=== PATIENT | female | born 1965 | race Caucasian/White ===

== ENCOUNTER 2016-06-23 13:20 | Inpatient (IN) | payer OTHER ==
[~2016-06-23] VITALS: Ht 154.9 cm; Wt 90.3 kg
[2016-06-23] MEDS ORDERED: FLUO20CA9 PO (13:51)
[2016-06-23] MEDS ORDERED: PROT1TAB2 PO (13:51)
[2016-06-23 14:45] LABS: ANION GAP 7 MEQ/L (8-16); BLOOD UREA NITROGEN 12 MG/DL (7-18); CARBON DIOXIDE LEVEL 27 MEQ/L (21-32); CHLORIDE LEVEL 107 MEQ/L (98-107); CREATININE FOR GFR 0.83 MG/DL (0.55-1.02); GLOMERULAR FILTRATION RATE > 60.0 (>58); GLUCOSE, FASTING 118 MG/DL (70-105); POTASSIUM SERUM 3.6 MEQ/L (3.5-5.1); SODIUM LEVEL 141 MEQ/L (136-145)
[2016-06-23] MEDS ORDERED: FLUO40CA PO (14:50)
[2016-06-23 15:05] LABS: BASO # 0.2 K/mm3 (0.0-0.2); BASO % 0.8 % (0.0-1.0); EOS % 0.2 % (0.0-3.0); LARGE UNSTAINED CELL # 0.1 K/mm3 (0.0-0.4); LARGE UNSTAINED CELL % 0.4 % (0.0-4.0); LYMPH # 0.6 K/mm3 (1.5-4.5); LYMPH % 1.5 % (24.0-44.0); MEAN CORPUSCULAR HEMOGLOBIN 21.4 pg (27.0-33.0); MEAN CORPUSCULAR VOLUME 71.5 fl (80.0-96.0); MONO # 0.6 K/mm3 (0.0-0.8); MONO % 1.9 % (0.0-5.0); NEUTROPHILS # 28.8 K/mm3 (1.8-7.7); NEUTROPHILS % 95.3 % (36.0-66.0); PLATELET COUNT, AUTOMATED 389 k/mm3 (150-450); RED CELL DISTRIBUTION WIDTH 16.5 % (11.5-14.5)
[2016-06-23 15:19] LABS: ADD MORPHOLOGY? YES; WHITE BLOOD COUNT 30.2 K/mm3 (4.0-10.0)
[2016-06-23 15:25] LABS: ANISOCYTOSIS 1+; HYPOCHROMASIA 2+; MICROCYTOSIS 2+
[2016-06-23] MEDS ORDERED: ONDANSETRON 4MG/2ML VIAL (J2405) IV PRN (15:30)
[2016-06-23] MEDS ORDERED: ACETAMINOPHEN TAB 650MG DOSE (2X325MG) PO PRN (15:30)
[2016-06-23] MEDS ORDERED: SODIUM CHLORIDE NASAL 0.65% SPRAY BTL (OCEAN) PRN (15:45)
[2016-06-23 16:18] LABS: VENOUS BASE EXCESS -0.8 (-2.0-2.0); VENOUS O2 SATURATION 94.3 % (60.0-80.0); VENOUS PARTIAL PRESSURE CO2 43.5 mmHg (38.0-50.0); VENOUS PARTIAL PRESSURE O2 75.5 mmHg (30.0-50.0); VENOUS STANDARD HCO3 23.8 MEQ/L; VENOUS TOTAL CO2 25.9 MEQ/L (24.0-28.0)
--- NOTE | 2016-06-23 16:20 | REP ---
Head CT without contrast: History: Dizziness. Comparison study: No comparison study. CT findings: Bone window settings demonstrate an intact bony calvarium. There is no evidence of skull fracture or incidental bony calvarial lesion. The visualized paranasal sinuses appear clear. No intraorbital abnormality is seen. On soft tissue window setting images; the lateral, third, and fourth ventricles are normal in size and position. Geller-white differentiation pattern is normal above and below the tentorium. There are is no evidence of intracranial hemorrhage. No mass, edema, infarction, or midline shift is seen. No extra-axial fluid collection is appreciated. Impression: Negative noncontrast head CT. Signed by Rafael Cardoza MD 06/23/2016 04:12 P
[2016-06-23 16:40] VITALS: BP 174/84
[2016-06-23 16:51] LABS: ALBUMIN 3.6 GM/DL (3.2-5.2); ALKALINE PHOSPHATASE 61 U/L (45-117); ALT/SGPT 21 U/L (12-78); ANION GAP 7 MEQ/L (8-16); AST/SGOT 9 U/L (15-37); BILIRUBIN,TOTAL 0.8 MG/DL (0.2-1.0); BLOOD UREA NITROGEN 12 MG/DL (7-18); CALCIUM LEVEL 8.1 MG/DL (8.5-10.1); CARBON DIOXIDE LEVEL 28 MEQ/L (21-32); CHLORIDE LEVEL 107 MEQ/L (98-107); CREATININE FOR GFR 0.86 MG/DL (0.55-1.02); GLOMERULAR FILTRATION RATE > 60.0 (>58); GLUCOSE, FASTING 108 MG/DL (70-105); POTASSIUM SERUM 3.7 MEQ/L (3.5-5.1); SODIUM LEVEL 142 MEQ/L (136-145); TOTAL PROTEIN 7.2 GM/DL (6.4-8.2)
[2016-06-23] MEDS: FLUoxetine 20 MG CAP PO SCH (17:09)
[2016-06-23] MEDS: PANTOPRAZOLE 40MG INJ (PROTONIX) (C9113) IV SCH (17:10)
[2016-06-23] MEDS: ENOXAPARIN 40 MG/0.4 ML SYRINGE (J1650) SC SCH (17:10)
[2016-06-23] MEDS: amLODIPine 5 MG TAB PO SCH (17:11)
[2016-06-23] MEDS ORDERED: SLF 3 ML SYR IV PRN (17:15)
[2016-06-23] MEDS: SLF 3 ML SYR IV SCH ×2 (17:19→20:04)
--- NOTE | 2016-06-23 18:11 | HPEPDOC ---
Medical History and Physical Date of Admission June 23, 2016 at 15:30 History and Physical PRIMARY CARE PROVIDER: Dr. Horne ATTENDING: Kinjal Garzon MD CHIEF COMPLAINT: Nausea/vomiting HISTORY OF PRESENT ILLNESS: This is a 50-year-old female with past medical history of migraines, sinusitis, GERD, depression, panic attacks who presents to [facility] complaining of nausea vomiting diarrhea. Upon presentation to [facility], patient's only had 1 episode of diarrhea. Stated that her nausea and vomiting had subsided. Patient had been feeling sick since Thursday during which nausea/nonbilious nonbloody vomiting as well as watery diarrhea started. Patient had approximately 3-4 stools per day which were watery and clumpy. No melanotic stools/hematochezia/hematemesis. Patient denies any sick contacts or recent travels. Admit the patient was noted to have a lactic acid is 2.7, the WBC 32, LFTs within normal limits. The patient was sent for further evaluation. Patient also had complained of frontal headache with associated dizziness. Patient states she occasionally has migraines and she typically has sinusitis. The patient states she currently feels well. Denies any complaints. PAST MEDICAL HISTORY: As per HPI PAST SURGICAL HISTORY: Left rotator cuff, bilateral breast reduction, hiatal hernia, umbilical hernia, venous stripping, cholecystectomy, fibroid tumor radiation treatment as well as ablation. SOCIAL HISTORY: Denies tobacco, illicit drug use. Occasional alcohol. Used to work as his [employer]. FAMILY HISTORY: Noncontributory ALLERGIES: Please see below. REVIEW OF SYSTEMS: HEENT: Denies sore throat/headache CARDIOVASCULAR: Denies chest pain/palpitations RESPIRATORY: No shortness of breath/cough GASTROINTESTINAL: + nausea/vomiting GENITOURINARY: Denies dysuria/urinary urgency. MUSCULOSKELETAL: Denies myalgias/arthralgias NEUROLOGICAL: Denies any focal weakness Rest of ROS negative. HOME MEDICATIONS: Please see below. PHYSICAL EXAMINATION: Vitals: (see below) General: No acute distress, laying comfortably in bed. HEENT: Moist mucous membranes. + Tenderness on palpation adjacent to the sinuses Neck: No JVD or lymphadenopathy Cardiac: RRR, No murmurs Pulm: Clear to auscultation b/l. No wheezing, rhonchi Abd: Minimal tenderness in the right upper quadrant. No rebound guarding or rigidity.ND + BS Ext: No edema or cyanosis Neuro: Strength 5/5 BUE and BLE. CN 2-12 intact. F to N intact Negative pronator drift. Negative Babinki. LABORATORY DATA: See below. IMAGING: CT abdomen and pelvis at [facility] in chart. MICROBIOLOGY: Please see below. ASSESSMENT/PLAN: 1. Leukocytosis/N/V/Diarrhea likely secondary to gastroenteritis. Lactic acidosis is much improved. Afebrile. We'll start Zosyn this patient has low- grade temps. We will continue to monitor leukocytosis. Nausea/vomiting/ diarrhea has resolved. GI panel if diarrhea persists. 2. Migraine- likely secondary to sinusitis. Nasal sprays ordered. CT head negative. If persistent consider MRI brain. Fioricet for headache. 3. Right upper quadrant tenderness- mild. LFTs within normal limits. Right upper quadrant ultrasound pending. 4. Depression- continue SSRI 5. Microcytic anemia - no bleeding at this time. anemia panel pending. DVT prophylaxis- enoxaparin Patient will follow by Dr. Kilgore starting 06/24/16 7 AM. Vital Signs Vital Signs Date Time Temp Pulse Resp B/P (MAP) Pulse Ox O2 Delivery O2 Flow Rate FiO2 06/23/16 17:11 104 174/84 06/23/16 16:40 100.3 20 94 Room Air Laboratory Data Labs 24H Laboratory Tests 2 06/23/16 14:16: White Blood Count 30.2*H, Red Blood Count 4.57, Hemoglobin 9.8L, Hematocrit 32.7L, Mean Corpuscular Volume 71.5L, Mean Corpuscular Hemoglobin 21.4L, Mean Corpuscular Hemoglobin Concent 30.0L, Red Cell Distribution Width 16.5H, Platelet Count 389, Neutrophils (%) (Auto) 95.3H, Lymphocytes (%) (Auto) 1.5L, Monocytes (%) (Auto) 1.9, Eosinophils (%) (Auto) 0.2, Basophils (%) (Auto) 0.8, Neutrophils # (Auto) 28.8H, Lymphocytes # (Auto) 0.6L, Monocytes # (Auto) 0.6, Eosinophils # (Auto) 0.0, Basophils # (Auto) 0.2, Large Unclassified Cells % 0.4 , Large Unclassified Cells # 0.1, Platelet Estimate NORMAL, Hypochromasia 2+, Anisocytosis 1+, Microcytosis 2+, Anion Gap 7L, Glomerular Filtration Rate > 60.0, Blood Urea Nitrogen 12, Creatinine 0.83, Sodium Level 141, Potassium Level 3.6, Chloride Level 107, Carbon Dioxide Level 27, Calcium Level 8.0L 06/23/16 16:09: Anion Gap 7L, Glomerular Filtration Rate > 60.0, Blood Urea Nitrogen 12, Creatinine 0.86, Sodium Level 142, Potassium Level 3.7, Chloride Level 107, Carbon Dioxide Level 28, Calcium Level 8.1L, Blood Gas Puncture Site NOT GIVEN, Blood Gas Bicarbonate Standard 23.8, Venous Blood pH 7.370, Venous Blood Partial Pressure CO2 43.5, Venous Blood Partial Pressure O2 75.5H, Venous Blood Total Carbon Dioxide 25.9, Venous Blood HCO3 24.6, Venous Blood Oxygen Saturation 94.3H, Venous Blood Base Excess -0.8, Lactic Acid Level 1.0, Aspartate Amino Transf (AST/SGOT) 9L, Alanine Aminotransferase (ALT/SGPT) 21, Alkaline Phosphatase 61, Total Bilirubin 0.8, Total Protein 7.2, Albumin 3.6, Magnesium Level 2.0, Total Creatine Kinase 57, Creatine Kinase MB 1.0, Creatine Kinase MB Relative Index 1.75, Troponin I < 0.02, Albumin/Globulin Ratio 1.00, Thyroid Stimulating Hormone (TSH) 1.220 CBC/BMP Laboratory Tests 06/23/16 14:16 Red Blood Count 4.57, Mean Corpuscular Volume 71.5 L, Mean Corpuscular Hemoglobin 21.4 L, Mean Corpuscular Hemoglobin Concent 30.0 L, Red Cell Distribution Width 16.5 H, Neutrophils (%) (Auto) 95.3 H, Lymphocytes (%) (Auto ) 1.5 L, Monocytes (%) (Auto) 1.9, Eosinophils (%) (Auto) 0.2, Basophils (%) ( Auto) 0.8, Neutrophils # (Auto) 28.8 H, Lymphocytes # (Auto) 0.6 L, Monocytes # (Auto) 0.6, Eosinophils # (Auto) 0.0, Basophils # (Auto) 0.2, Calcium Level 8.0 L 06/23/16 16:09 Calcium Level 8.1 L, Aspartate Amino Transf (AST/SGOT) 9 L, Alanine Aminotransferase (ALT/SGPT) 21, Alkaline Phosphatase 61, Total Bilirubin 0.8, Total Protein 7.2, Albumin 3.6 Microbiology Microbiology 06/23/16 Blood Culture, Received Pending Home Medications Scheduled Fluoxetine Hcl (Fluoxetine HCl) 40 Mg Cap, 40 MG PO DAILY Pantoprazole Sodium Sesquihydr (Protonix) 40 Mg Tab, 40 TAB PO DAILY Allergies Coded Allergies: Tetracycline (Verified Allergy, Severe, hives, 06/23/16) KINJAL GARZON MD June 23, 2016 18:11
[2016-06-23] MEDS ORDERED: FIORICET TAB PO PRN (18:15)
[2016-06-23] MEDS ORDERED: MECLIZINE 12.5 MG TAB PO PRN (18:15)
[2016-06-23 19:45] VITALS: BP 139/77
[2016-06-23] MEDS: PIPERACILLIN/TAZOBACTAM SOD 3.375 GM in D5W MINI-BAG PLUS 50 ML IV SCH (20:04)
[2016-06-23 23:59] VITALS: BP 132/85
[2016-06-24 03:17] VITALS: BP 157/92
[2016-06-24] MEDS: PIPERACILLIN/TAZOBACTAM SOD 3.375 GM in D5W MINI-BAG PLUS 50 ML IV SCH ×3 (03:19→21:13)
[2016-06-24] MEDS: SLF 3 ML SYR IV SCH ×3 (03:20→21:13)
[2016-06-24 05:51] LABS: BASO # 0.1 K/mm3 (0.0-0.2); BASO % 0.3 % (0.0-1.0); EOS # 0.2 K/mm3 (0.0-0.50); EOS % 0.7 % (0.0-3.0); LARGE UNSTAINED CELL # 0.2 K/mm3 (0.0-0.4); LARGE UNSTAINED CELL % 0.7 % (0.0-4.0); LYMPH % 9.2 % (24.0-44.0); MEAN CORPUSCULAR HEMOGLOBIN 21.7 pg (27.0-33.0); MEAN CORPUSCULAR HGB CONC 29.7 g/dl (32.0-36.5); MEAN CORPUSCULAR VOLUME 73.1 fl (80.0-96.0); MONO # 0.6 K/mm3 (0.0-0.8); MONO % 2.6 % (0.0-5.0); NEUTROPHILS # 19.3 K/mm3 (1.8-7.7); NEUTROPHILS % 86.6 % (36.0-66.0); PLATELET COUNT, AUTOMATED 372 k/mm3 (150-450); RED CELL DISTRIBUTION WIDTH 16.6 % (11.5-14.5); WHITE BLOOD COUNT 22.2 K/mm3 (4.0-10.0)
[2016-06-24 06:02] LABS: ALBUMIN 3.3 GM/DL (3.2-5.2); ALBUMIN/GLOBULIN RATIO 0.97 (1.00-1.93); ALKALINE PHOSPHATASE 59 U/L (45-117); ALT/SGPT 15 U/L (12-78); ANION GAP 7 MEQ/L (8-16); AST/SGOT 8 U/L (15-37); BILIRUBIN,TOTAL 0.8 MG/DL (0.2-1.0); BLOOD UREA NITROGEN 9 MG/DL (7-18); CALCIUM LEVEL 7.9 MG/DL (8.5-10.1); CARBON DIOXIDE LEVEL 30 MEQ/L (21-32); CHLORIDE LEVEL 105 MEQ/L (98-107); CREATININE FOR GFR 0.87 MG/DL (0.55-1.02); GLOMERULAR FILTRATION RATE > 60.0 (>58); GLUCOSE, FASTING 93 MG/DL (70-105); PERCENT SATURATION 5.6 % (13.2-37.4); POTASSIUM SERUM 3.4 MEQ/L (3.5-5.1); SODIUM LEVEL 142 MEQ/L (136-145); TOTAL PROTEIN 6.7 GM/DL (6.4-8.2)
--- NOTE | 2016-06-24 06:08 | REP ---
RIGHT UPPER QUADRANT ULTRASOUND: Real-time sonographic evaluation of the right upper quadrant performed. The study is somewhat limited by patient body habitus and bowel gas. Patient has had a prior cholecystectomy. There is no intrahepatic or extrahepatic biliary dilatation, common bile duct measuring 8 mm in diameter. Liver demonstrates diffuse fibrofatty infiltration. No gross liver or pancreatic mass is seen, pancreas is not well seen due to overlying bowel gas and body habitus. Right kidney demonstrates no hydronephrosis or nephrolithiasis with normal size at 11.9 cm in length. No free fluid is seen. IMPRESSION: Essentially unremarkable right upper quadrant ultrasound status post cholecystectomy. The study is somewhat limited by patient body habitus and bowel gas. Signed by Mark Geller MD 06/24/2016 04:05 P
[2016-06-24 08:00] VITALS: BP 172/79
[2016-06-24] MEDS ORDERED: POTASSIUM CHLORIDE 10 MEQ SR TABLET PO ONE (08:15)
[2016-06-24] MEDS: ENOXAPARIN 40 MG/0.4 ML SYRINGE (J1650) SC SCH (09:02)
[2016-06-24] MEDS: amLODIPine 5 MG TAB PO SCH (09:02)
[2016-06-24] MEDS: FLUoxetine 20 MG CAP PO SCH (09:02)
[2016-06-24 09:22] LABS: FOLATE 9.9 NG/ML (>5.4)
[2016-06-24] MEDS: FERROUS SULFATE 325MG TAB PO SCH ×2 (11:08→21:13)
[2016-06-24 12:00] VITALS: BP 148/88
--- NOTE | 2016-06-24 15:07 | ECGEPIP ---
Stationary ECG Study [facility] - ED Test Date: 2016-06-23 Pat Name: NOREEN WILEY Department: Room: [place] [address] Gender: F [facility] Promoter: rn : 1965 Requested By: ISAAC Solitario Order Number: [id number] Reading MD: Noreen Torres Measurements Intervals [place] Rate: 96 P: 40 [place]: 167 QRS: 48 QRSD: 87 T: -5 QT: 361 QTc: 457 Interpretive Statements SINUS RHYTHM NONSPECIFIC ST & T-WAVE ABNORMALITY NO PRIOR FOR COMPARISON Electronically Signed On 06-24-2016 15:07:19 EDT by Noreen Torres
[2016-06-24 15:45] VITALS: BP 139/75
[2016-06-24] MEDS: PANTOPRAZOLE 40MG INJ (PROTONIX) (C9113) IV SCH (17:20)
--- NOTE | 2016-06-24 18:51 | IPN ---
DATE: 06/24/2016 Patient seen and examined. No acute events overnight. Reported abdominal pain to be much improved. Tolerating oral. Continuing to have diarrhea but also much improved. Denies any fevers or chills, chest pain, pressure or discomfort. VITAL SIGNS: Maximum temperature (T max) 100.4, current temperature (T current) 98.3, pulse 86, respirations 20, blood pressure 139/75, pulse oximetry 96% on room air. LABORATORY DATA: WBC 22.2, hemoglobin and hematocrit 9 over 30.3, platelets 372. Chemistry: Sodium 142, potassium 3.4, chloride 105, bicarbonate 30, BUN 9, creatinine 0.87. Cardiac enzymes negative times two. GI panel negative. PHYSICAL EXAMINATION: GENERAL: Patient alert and oriented times three, in no acute distress. HEENT: Normocephalic, atraumatic. PULMONARY: Bilaterally clear to auscultation. CARDIAC: Regular rate and rhythm. Normal S1, S2. ABDOMEN: Minimal tenderness right upper quadrant. No rebound, no guarding. Positive bowel sounds. EXTREMITIES: No edema bilateral lower extremities. ASSESSMENT AND PLAN: This is a 50-year-old female patient with underlying medical history of migraines, sinusitis, gastroesophageal reflux disease (GERD), depression, panic attacks, presented with complaints of nausea, vomiting and diarrhea with abdominal pain. Initially presented to [facility], found to have severe leukocytosis. Subsequently, the patient was transferred to [facility]. Problems: 1. Leukocytosis with nausea, vomiting, diarrhea and abdominal pain, likely secondary to gastroenteritis. Lactic acidosis improved. Diet as tolerated. Zosyn. CT scan at [place] has been negative. Ultrasound of right upper quadrant has also been negative. GI panel has been negative as well. Will continue to follow. Leukocytosis improved. 2. Migraine. Likely secondary to sinusitis. Nasal spray. CT of the head negative. Currently symptoms have improved after Fioricet. 3. Right upper quadrant tenderness. Currently is mild, much improved. Liver function test (LFT) within normal limits. Right upper quadrant ultrasound within normal limits. 4. Depression. Continue on current medication. 5. Microcytic anemia. No bleeding. Anemia panel appreciated. Iron supplementation. 6. Hypertension. Continue blood pressure medication. 7. Depression. Continue current medication. 8. Deep vein thrombosis (DVT) prophylaxis. Lovenox subcu. DISPOSITION PLANNING: Pending clinical improvement.
[2016-06-24 20:53] VITALS: BP 163/82
[2016-06-24 23:58] VITALS: BP 142/72
[2016-06-25] MEDS: PIPERACILLIN/TAZOBACTAM SOD 3.375 GM in D5W MINI-BAG PLUS 50 ML IV SCH ×2 (05:02→12:05)
[2016-06-25] MEDS: SLF 3 ML SYR IV SCH (05:03)
[2016-06-25 05:10] VITALS: BP 152/86
[2016-06-25 05:57] LABS: ADD MORPHOLOGY? YES; ALBUMIN 3.1 GM/DL (3.2-5.2); ALBUMIN/GLOBULIN RATIO 0.74 (1.00-1.93); ALKALINE PHOSPHATASE 62 U/L (45-117); ALT/SGPT 17 U/L (12-78); ANION GAP 5 MEQ/L (8-16); AST/SGOT 8 U/L (15-37); BASO # 0.1 K/mm3 (0.0-0.2); BASO % 0.7 % (0.0-1.0); BILIRUBIN,TOTAL 0.3 MG/DL (0.2-1.0); BLOOD UREA NITROGEN 10 MG/DL (7-18); CALCIUM LEVEL 8.5 MG/DL (8.5-10.1); CARBON DIOXIDE LEVEL 31 MEQ/L (21-32); CHLORIDE LEVEL 106 MEQ/L (98-107); CREATININE FOR GFR 0.81 MG/DL (0.55-1.02); EOS # 0.4 K/mm3 (0.0-0.50); EOS % 3.2 % (0.0-3.0); GLOMERULAR FILTRATION RATE > 60.0 (>58); GLUCOSE, FASTING 101 MG/DL (70-105); LARGE UNSTAINED CELL # 0.2 K/mm3 (0.0-0.4); LARGE UNSTAINED CELL % 1.8 % (0.0-4.0); LYMPH # 2.1 K/mm3 (1.5-4.5); LYMPH % 16.2 % (24.0-44.0); MAGNESIUM LEVEL 1.8 MG/DL (1.8-2.4); MEAN CORPUSCULAR HEMOGLOBIN 21.9 pg (27.0-33.0); MEAN CORPUSCULAR HGB CONC 29.8 g/dl (32.0-36.5); MEAN CORPUSCULAR VOLUME 73.6 fl (80.0-96.0); MONO # 0.5 K/mm3 (0.0-0.8); MONO % 3.6 % (0.0-5.0); NEUTROPHILS # 9.5 K/mm3 (1.8-7.7); NEUTROPHILS % 74.5 % (36.0-66.0); PLATELET COUNT, AUTOMATED 349 k/mm3 (150-450); POTASSIUM SERUM 3.4 MEQ/L (3.5-5.1); RED CELL DISTRIBUTION WIDTH 16.6 % (11.5-14.5); SODIUM LEVEL 142 MEQ/L (136-145); TOTAL PROTEIN 7.3 GM/DL (6.4-8.2); WHITE BLOOD COUNT 12.8 K/mm3 (4.0-10.0)
[2016-06-25 06:32] LABS: ANISOCYTOSIS 1+; HYPOCHROMASIA 3+; MICROCYTOSIS 2+
[2016-06-25] MEDS ORDERED: POTASSIUM CHLORIDE 10 MEQ SR TABLET PO ONE (07:15)
[2016-06-25 08:00] VITALS: BP 165/91
[2016-06-25] MEDS: FLUoxetine 20 MG CAP PO SCH (09:15)
[2016-06-25] MEDS: FERROUS SULFATE 325MG TAB PO SCH (09:15)
[2016-06-25 09:16] VITALS: BP 165/91
[2016-06-25] MEDS: ENOXAPARIN 40 MG/0.4 ML SYRINGE (J1650) SC SCH (09:16)
[2016-06-25] MEDS: amLODIPine 5 MG TAB PO SCH (09:16)
[2016-06-25] MEDS ORDERED: FLAG500T PO ×2 (11:40→12:11)
[2016-06-25] MEDS ORDERED: AMLO5TAB2 PO (11:40)
[2016-06-25] MEDS ORDERED: CIPR500T89 PO (11:40)
[2016-06-25] MEDS ORDERED: PROBCAP14 PO (11:42)
[2016-06-25 12:00] VITALS: BP 150/78
--- NOTE | 2016-06-26 21:23 | DSES ---
DATE OF ADMISSION: 06/24/2016 DATE OF DISCHARGE: 06/25/2016 PRIMARY CARE PROVIDER: Dr. Neetu Sommer FINAL DIAGNOSES: 1. Leukocytosis with nausea and vomiting and abdominal pain secondary to gastroenteritis. 2. Migraine headache. 3. Depression. 4. Microcytic anemia. 5. Hypertension. 6. Depression. HISTORY OF PRESENT ILLNESS: This is a 50-year-old female patient with underlying medical history of migraine, sinusitis, gastroesophageal reflux disease (GERD), depression, panic attack who presented to [facility] complaining of nausea, vomiting, abdominal pain, and diarrhea. On presentation, had one episode of diarrhea and nausea and vomiting has improved but has found to be in severe leukocytosis with white blood cell (WBC) count of 30. The patient has reported sick since Thursday with watery diarrhea and cramping with no melanic stool, hematochezia or hematemesis. The patient denies any sick contact or recent travel. On presentation, lactic acid 2.7 and WBC of 32 with liver function test (LFT) within normal limits. CT scan was done at [facility] showing no acute findings. Right upper quadrant ultrasound was also done showing no acute findings as well. The patient also complained of frontal headache consistent with her typical migraine. Denies any chest pain, pressure or discomfort. HOSPITAL COURSE: The patient is accepted from [facility], given IV fluids. Right upper ultrasound was done and appreciated. The patient initially started on Zosyn. Blood pressure medication was started. Home medications were continued. Iron was also given. Electrolytes were followed and supplemented. Cultures were sent. Gastrointestinal (GI) panel was negative. The patient's leukocytosis improved with resolution of pain. The patient is tolerating oral, currently is able to ambulate, denies any significant distress, ready for discharge for further care as outpatient. VITAL SIGNS: Temperature 98.9, pulse 90, respiratory rate 22, blood pressure 150/78, pulse oximetry 95% on room air. LABORATORY DATA: WBC 12.8, hemoglobin and hematocrit 9.2/30.9, Sodium 142, potassium 3.4, chloride 106, bicarbonate 31, BUN 10, creatinine 0.81. DISCHARGE MEDICATIONS: - Norvasc 5 mg by mouth daily - Cipro 500 mg by mouth twice a day - Flagyl 500 mg by mouth every eight hours - probiotic one tablet by mouth three times a day - fluoxetine 40 mg by mouth daily - Protonix 40 mg by mouth daily Antibiotics above are to continue for only five more days. DISCHARGE INSTRUCTIONS: The patient is instructed to followup with primary care provider in seven days. Return to the hospital if symptoms worsen. Stay hydrated orally. MTDD
== END 2016-06-25 13:49 | disposition home or self-care (01) | DRG 392 ==
LOC: M ED 15:25 → M ED INP 15:30 → M PCU 16:38 → OBSVTOIN 06-24 10:21
PROVIDERS: ADMIT Internal Medicine; ATTEND Hospitalist
DX: K52.9 Noninfective gastroenteritis and colitis, unspecified (principal); E87.2 Acidosis; G43.909 Migraine, unspecified, not intractable, without status migrainosus; J32.9 Chronic sinusitis, unspecified; K21.9 Gastro-esophageal reflux disease without esophagitis; F32.9 Major depressive disorder, single episode, unspecified; F41.0 Panic disorder [episodic paroxysmal anxiety]; D50.9 Iron deficiency anemia, unspecified; Z79.899 Other long term (current) drug therapy; Z88.8 Allergy status to other drugs, medicaments and biological substances

== ENCOUNTER 2016-09-04 08:19 | Day surgery (SDC) | payer OTHER ==
[2016-09-04] VITALS (7 sets, daily range): BP systolic 130–138; BP diastolic 61–71
[~2016-09-04] VITALS: Ht 154.9 cm; Wt 90.7 kg
[~2016-09-04 08:19] MED LIST: AMLO5TAB2 PO; CIPR-249 PO; FLAG500T PO; FLUO20CA19 PO; FLUO40CA PO; IRON65TA PO; PROBCAP14 PO; PROT1TAB2 PO
[2016-09-04] MEDS ORDERED: fentaNYL 250 MCG/5 ML INJECTION (J3010) As Ordered ONE (08:36)
[2016-09-04] MEDS ORDERED: KETOROLAC 60 MG/2 ML VIAL (J1885) As Ordered ONE (08:36)
[2016-09-04] MEDS ORDERED: HYDROmorphone HCL 2 MG/ML 1ML VIAL (J1170) As Ordered ONE (08:36)
[2016-09-04] MEDS ORDERED: LIDOCAINE 2% INJ 100 MG/5 ML SDV (FOR ANES.) As Ordered ONE (08:37)
[2016-09-04] MEDS ORDERED: PROPOFOL 200 MG/20 ML VIAL As Ordered ONE (08:37)
[2016-09-04] MEDS ORDERED: dexameTHASONE 4 MG/ML 1ML VIAL (J1100) As Ordered ONE (08:37)
[2016-09-04] MEDS ORDERED: ONDANSETRON 4MG/2ML VIAL (J2405) As Ordered ONE ×2 (08:37→16:06)
[2016-09-04] MEDS ORDERED: MIDAZOLAM INJ 2 MG/2 ML VIAL (J2250) As Ordered ONE (08:37)
[2016-09-04] MEDS ORDERED: ROCURONIUM BROMIDE 50 MG/5 ML VIAL/SYRINGE As Ordered ONE ×2 (08:37→14:57)
[2016-09-04] MEDS ORDERED: LIDOCAINE 1% MDV 20ML VIAL SQ PRN (08:45)
[2016-09-04] MEDS ORDERED: LR 1,000 ML IV SCH ×2 (08:45→16:30)
[2016-09-04] MEDS ORDERED: LR 1,000 ML IV ONE (08:45)
[2016-09-04 09:00] LABS: MEAN CORPUSCULAR HEMOGLOBIN 26.1 pg (27.0-33.0); MEAN CORPUSCULAR HGB CONC 32.8 g/dl (32.0-36.5); MEAN CORPUSCULAR VOLUME 79.7 fl (80.0-96.0); RED CELL DISTRIBUTION WIDTH 18.7 % (11.5-14.5); WHITE BLOOD COUNT 8.1 K/mm3 (4.0-10.0)
[2016-09-04 09:16] LABS: CONTROL LINE UCG INT CTR LINE PRESENT
[2016-09-04] MEDS ORDERED: SCOPOLAMINE 1.5 MG TRANSDERMAL As Ordered ONE (11:35)
[2016-09-04] MEDS ORDERED: SCOPOLAMINE 1.5 MG TRANSDERMAL TOP ONE (11:45)
[2016-09-04] MEDS ORDERED: ePHEDrine SULFATE 25 MG/5 ML(5MG/ML) SYRINGE As Ordered ONE (12:43)
[2016-09-04] MEDS ORDERED: METHYLENE BLUE 0.5% (5MG/ML) 10 ML AMP (PROVAYBLUE)(Q9968 PER 1MG) As Ordered ONE (14:18)
[2016-09-04] MEDS ORDERED: NEOSTIGMINE 1MG/ML 5 ML SYRINGE (J2710) As Ordered ONE (14:54)
[2016-09-04] MEDS ORDERED: GLYCOPYRROLATE INJ 0.2 MG/ML 2 ML VIAL As Ordered ONE (14:54)
[2016-09-04] MEDS ORDERED: MORPHINE 1MG/ML IN 0.9% NACL 100ML IV BAG As Ordered ONE (15:39)
[2016-09-04] MEDS ORDERED: ESMOLOL INJ 100MG/10ML VIAL As Ordered ONE (15:52)
[2016-09-04] MEDS ORDERED: METOCLOPRAMIDE INJ 10MG/2ML VIAL (J2765) As Ordered ONE (16:16)
[2016-09-04] MEDS ORDERED: PERCOCET 5MG/325MG TAB PO PRN (16:30)
[2016-09-04] MEDS ORDERED: NALBUPHINE HCL 10 MG/ML AMP (J2300) IV PRN (16:30)
[2016-09-04] MEDS ORDERED: diphenhydrAMINE INJ 50MG/ML VIAL (J1200) IV PRN ×2 (16:30→16:45)
[2016-09-04] MEDS ORDERED: ONDANSETRON 4MG/2ML VIAL (J2405) IV PRN (16:30)
[2016-09-04] MEDS ORDERED: IBUPROFEN 600 MG TAB PO PRN (16:30)
[2016-09-04] MEDS ORDERED: MEPERIDINE INJ 25 MG/ML VIAL (J2175) IV PRN (16:30)
[2016-09-04] MEDS ORDERED: fentaNYL 100 MCG/2 ML INJECTION (J3010) IV PRN (16:30)
[2016-09-04] MEDS ORDERED: METOCLOPRAMIDE INJ 10MG/2ML VIAL (J2765) IV PRN (16:30)
[2016-09-04] MEDS ORDERED: NALOXONE INJ 0.4 MG/1 ML VIAL (J2310) IV PRN (16:30)
[2016-09-04] MEDS ORDERED: EPIDURAL/PCA KEYS XX PRN (16:30)
[2016-09-04] MEDS ORDERED: MORPHINE 1MG/ML IN 0.9% NACL 100ML IV BAG IV PRN (16:30)
[2016-09-05] VITALS: BP 130/72
[2016-09-05] MEDS: LR 1,000 ML IV SCH ×2 (00:11→00:15)
[2016-09-05 04:00] VITALS: BP 138/65
[2016-09-05] MEDS ORDERED: NORCO, ANEXSIA 5/325MG TABLET (HYDROcodone/ACETAMINOPHEN) PO PRN (06:01)
[2016-09-05 07:08] LABS: MEAN CORPUSCULAR HEMOGLOBIN 26.8 pg (27.0-33.0); MEAN CORPUSCULAR HGB CONC 33.4 g/dl (32.0-36.5); MEAN CORPUSCULAR VOLUME 80.3 fl (80.0-96.0); RED CELL DISTRIBUTION WIDTH 18.9 % (11.5-14.5); WHITE BLOOD COUNT 11.4 K/mm3 (4.0-10.0)
[2016-09-05 08:00] VITALS: BP 149/70
[2016-09-05] MEDS ORDERED: FLUoxetine 10 MG CAP PO SCH (09:00)
[2016-09-05] MEDS ORDERED: PANTOPRAZOLE 20 MG TAB PO SCH (09:00)
[2016-09-05] MEDS ORDERED: MOTR200T44 PO (12:37)
[2016-09-05] MEDS ORDERED: LORT5TAB PO (12:38)
--- NOTE | 2016-09-06 07:07 | RO ---
DATE OF PROCEDURE: 09/04/2016 PREPROCEDURE DIAGNOSES: Pain, bleeding, fibroid uterus. POSTPROCEDURE DIAGNOSES: Pain, bleeding, fibroid uterus. PROCEDURE: Robotic assisted hysterectomy with bilateral salpingo-oophorectomy, lysis of adhesions and cystourethroscopy. SURGEON: Dr. Monse Argueta STRESS ANALYST: Khadijah Gibson ANESTHESIA: General endotracheal anesthesia. BRIEF DESCRIPTION OF PROCEDURE AND FINDINGS: Noreen was brought to the operating room where sufficient general endotracheal anesthesia was induced. She was prepped, draped and positioned in the usual sterile fashion with the uterine manipulator placed for the robot use and attention then turned to the abdomen. A transverse incision was made over the line of her previous surgical scar. Sharp and blunt dissection were continued through the subcutaneous tissue to the level of the rectus fascia which was elevated with Tatiana clamps, transversely incised, secured with #0 Vicryl retention sutures and then the peritoneum was entered under direct visualization in an open laparoscopic technique and the Kolby cannula placed into the peritoneal cavity in an open laparoscopic technique and CO2 insufflation was then begun. After adequate CO2 insufflation, the peritoneal cavity was visualized. There were normal shiny peritoneal surfaces throughout. There was no ascites, exudate nor excrescences. There were adhesions, especially along the left side and adhesions of the ovary to the left pelvic sidewall just inferior to the pelvic fossa and of the fallopian tube and of the intestines over the infundibulopelvic. My suspicion would be that this is a diverticulitis type thing or GI inflammatory response rather than gynecologic because the right side showed no such changes, so there really did not appear to be any kind of hydrosalpinx or anything like that, so I suspect that this is from a GI, not a DOLL SURGEON cause, but of course cannot prove that just by the presence of these adhesions themselves. We placed two left sided and one right sided port for the robot and placed the patient in Trendelenburg and then carefully brought down the adhesions of the bowel. These were filmy adhesions, but quite numerous, but not really particularly vascular, and so we didn't use cautery. We just brought them down carefully to free up that infundibulopelvic so we could have access there. Then cauterized the infundibulopelvic using the bipolar cautery and carefully transected it so as to diminish the blood supply to that ovary. Having that isolated, we were able to free that, but then we still had an ovary attached to the pelvic sidewall. We went up and took the round on the left side and then went back down and carefully dissected out that ovary. While we did this work, we went ahead and did the anterior broad ligament and the posterior broad ligament so we could drop the ureter down medially and the bladder down anteriorly and then went back to that ovary and its location stuck to the sidewall, especially with the amount of adhesions and the large uterus which was subsequently a weight of 415 grams fibroid, it was difficult to clearly see how close we were to ureters, so we did not use cautery on this. We went ahead and just cut it cold with slow dissection as if we were open actually. Then there was some ooze from that sidewall. We had a plan for Gelfoam later if it was still oozing, but by the end of the case that had stopped. So we cut that free cold and then went ahead and went back to the right side where we isolated that infundibulopelvic ligament, cauterized, transected it and then worked to the round. I then switched over to the 30 degrees down scope so that we could complete the bladder flap dissection and have a better view around this uterus because it was bulky and filling the pelvis as is already documented in the operative photos. By having this down scope, I was able to angle my view around so that I could see the uterine blood supply and carefully cauterize and transect it. There was definitely multiple recruited blood vessels for these large fibroids, so there was more than the average vascular supply, consistent with fibroid uterus. Having gotten the blood supply under control, we then back filled the bladder and confirmed that we had that bladder flap down well and went ahead and made the colpotomy anteriorly and worked out and worked through the side martin through the area of the blood vessels. Then basically rolled the uterus over side to side so that we could join up the dissection posteriorly, but working from the side and the front rather than from behind this uterus, which was large enough we could not really free it fully, but using the uterus as the insulator we were able to rotate it and work with it in that fashion and minimize the bowel risk and still free the uterus. Then having freed the cervix, we then delivered that into the vagina. The uterus itself would not just pass whole and given that it was subsequently weighed out at 415 grams, that is certainly not a surprise. We went ahead and delivered the cervix and then using the scissors within the vagina carefully transected a portion of the mid posterior aspect of the uterus and then removed the right fundus and then the rest of the uterus with the large fibroid that was present and, of course, the attached ovaries and tubes. Again, this was weighed and was 415 grams in the room and will be sent to the pathologist for further evaluation. We then placed a moist lap in the vagina to maintain pneumoperitoneum and went ahead and closed that wound robotically using V-Loc suture with good approximation and hemostasis achieved. Evaluation of that left pelvic side wall where we had planned on placing some Gelfoam showed that there really was not any evidence of persistent bleeding, but with the large raw area and the dissection near where the uterus was, we decided to go ahead and scope the patient to make sure that she had good urine flow bilaterally and confirm the expected lack of bladder injury. We went ahead and change the plan and added cystourethroscopy and some methylene blue and we were able to see methylene blue coming from both ureteral orifices, both left and right, and able to see that there was no bladder injury. We thus ended the case. We removed the cystoscope. We removed the instruments from the abdomen and went ahead and closed those wounds. The umbilical wound was closed with #0 Vicryl at the fascial layer and then #3-0 Vicryl in a subcuticular stitch at the skin and the other 8 mm ports were closed at the skin with #3-0 Vicryl in a subcuticular stitch. Dry sterile dressings were then applied. ESTIMATED BLOOD LOSS FOR THE PROCEDURE: About 200 mL. FLUID REPLACEMENT: Crystalloid. COMPLICATIONS: None. CONDITION AND DISPOSITION: Noreen tolerated the procedure well and was recovering in the recovery room in good condition.
== END 2016-09-05 13:15 | disposition home or self-care (01) ==
LOC: M SDC 08:19 → M PED 17:18 → M SDC 09-05 13:15
PROVIDERS: ATTEND Obstetrics & Gynecology
DX: N93.9 Abnormal uterine and vaginal bleeding, unspecified (principal); D25.9 Leiomyoma of uterus, unspecified; I10 Essential (primary) hypertension; K44.9 Diaphragmatic hernia without obstruction or gangrene; K21.9 Gastro-esophageal reflux disease without esophagitis; R32 Unspecified urinary incontinence; G43.909 Migraine, unspecified, not intractable, without status migrainosus; E66.9 Obesity, unspecified; K25.9 Gastric ulcer, unspecified as acute or chronic, without hemorrhage or perforation; D64.9 Anemia, unspecified; R31.9 Hematuria, unspecified; Z91.018 Allergy to other foods; Z88.1 Allergy status to other antibiotic agents; Z79.899 Other long term (current) drug therapy; Z87.442 Personal history of urinary calculi
CPT/HCPCS: 36415; 58571; 84703; 85027; 86850; 86900; 86901; 88309; 96374; 96375; J0690; J1100; J1170; J1200; J1885; J2250; J2405; J2710; J2765; J3010; Q9968

== ENCOUNTER → 2018-10-25 | Outpatient (REF) | payer OTHER ==
[~2018-10-25] MED LIST changes: -AMLO5TAB2 PO; +AMLO5TAB6 PO; +LORT5TAB PO; +MOTR200T44 PO
[2018-10-25 19:57] LABS: BASO # 0.1 10^3/uL (0.0-0.2); BASO % 0.7 % (0.0-1.0); EOS # 0.3 10^3/uL (0.0-0.5); EOS % 3.3 % (0.0-3.0); HEMATOCRIT 45.7 % (36.0-47.0); HEMOGLOBIN 14.6 g/dl (12.0-15.5); LYMPH # 2.4 10^3/uL (1.5-5.0); LYMPH % 27.1 % (24.0-44.0); MEAN CORPUSCULAR HEMOGLOBIN 28.1 pg (27.0-33.0); MEAN CORPUSCULAR HGB CONC 31.9 g/dl (32.0-36.5); MEAN CORPUSCULAR VOLUME 87.9 fl (80.0-96.0); MONO # 0.5 10^3/uL (0.0-0.8); MONO % 5.8 % (0.0-5.0); NEUTROPHILS # 5.5 10^3/uL (1.5-8.5); NEUTROPHILS % 62.9 % (36.0-66.0); PLATELET COUNT, AUTOMATED 319 10^3/uL (150-450); WHITE BLOOD COUNT 8.7 10^3/uL (4.0-10.0)
[2018-10-25 20:07] LABS: ALT/SGPT 31 U/L (12-78); BILIRUBIN,TOTAL 0.7 MG/DL (0.2-1.0); BLOOD UREA NITROGEN 18 MG/DL (7-18); CALCIUM LEVEL 9.2 MG/DL (8.5-10.1); CARBON DIOXIDE LEVEL 28 MEQ/L (21-32); CHLORIDE LEVEL 105 MEQ/L (98-107); CHOLESTEROL LEVEL 177 MG/DL (<200); CHOLESTEROL RISK RATIO 3.687 (<5); CREATININE FOR GFR 0.82 MG/DL (0.55-1.30); GLOMERULAR FILTRATION RATE > 60.0 (>51); GLUCOSE, FASTING 105 MG/DL (70-100); HDL CHOLESTEROL 48 MG/DL (>40); LDL CHOLESTEROL 109 MG/DL (<100); NON-HDL-C 129 MG/DL; POTASSIUM SERUM 4.2 MEQ/L (3.5-5.1); SODIUM LEVEL 140 MEQ/L (136-145); TOTAL PROTEIN 7.8 GM/DL (6.4-8.2); TRIGLYCERIDES LEVEL 102 MG/DL (<150)
== END ==
LOC: M LAB REF 18:42
PROVIDERS: ATTEND Family Medicine
DX: Z00.00 Encounter for general adult medical examination without abnormal findings (principal); I10 Essential (primary) hypertension; E88.81 Metabolic syndrome and other insulin resistance; E66.01 Morbid (severe) obesity due to excess calories; D49.89 Neoplasm of unspecified behavior of other specified sites

== ENCOUNTER → 2020-03-09 | Outpatient (CLI) | payer OTHER ==
[~2020-03-09] MED LIST changes: +AMLO1TAB24 PO; -AMLO5TAB6 PO; -FLUO20CA19 PO; +FLUO20CA22 PO
--- NOTE | 2020-03-09 10:07 | REPMRS ---
Patient History The patient states she had a clinical breast exam in 01/2020 Patient is postmenopausal and is nulliparous. Family history of breast cancer at age 80 in maternal grandmother, breast cancer at age 70 in paternal aunt, colorectal cancer at age 60 in father. Reductions of both breasts, 2014. 3D TOMOSYNTHESIS WAS PERFORMED. Volpara breast density a. Digital Woman Screen Mammo: March 09, 2020 - Exam #: [id number] Bilateral CC and MLO view(s) were taken. Technologist: Christina Lee, Technologist Prior study comparison: November 05, 2015, bilateral digital mammo screening bilat, performed at [facility]. FINDINGS: There are scattered fibroglandular densities. There has been no change in the appearance of the mammogram from the prior studies. There is a mild amount of residual fibroglandular tissue which is fairly symmetric. There is no interval development of dominant mass, architectural distortion, or clustered microcalcification suggestive of malignancy. Assessment: BI-RADS/ACR category 1 mammogram. Negative Mammogram. Recommendation Routine screening mammogram in 1 year (for women over age 40). This mammogram was interpreted with the aid of an FDA-approved computer-aided dectection system. THE LIFETIME RISK OF BREAST CANCER IS 20.9%, THEREFORE SUPPLEMENTAL SCREENING MRI OF THE BREASTS IS RECOMMENDED IN 6 MONTHS. Electronically Signed By: Mark Geller MD 03/09/20 [id number]
== END ==
LOC: M WHC 09:19
PROVIDERS: ATTEND Physician Assistant Medical
DX: Z12.31 Encounter for screening mammogram for malignant neoplasm of breast (principal)

== ENCOUNTER → 2021-04-12 | Outpatient (CLI) | payer OTHER | LOC: M WHC 09:55 | PROVIDERS: ATTEND Physician Assistant Medical | DX: Z12.31 Encounter for screening mammogram for malignant neoplasm of breast (principal) ==

== ENCOUNTER → 2022-04-10 | Outpatient (REF) | payer OTHER | LOC: M SFHCDERM 16:53 | PROVIDERS: ATTEND Nurse Practitioner Family | DX: L82.1 Other seborrheic keratosis (principal) ==

== ENCOUNTER → 2022-05-20 | Outpatient (CLI) | payer OTHER | LOC: M WHC 13:18 | PROVIDERS: ATTEND Physician Assistant Medical | DX: Z12.31 Encounter for screening mammogram for malignant neoplasm of breast (principal) ==

== ENCOUNTER → 2023-01-29 | Outpatient (REF) | payer OTHER | LOC: M SFHCDERM 18:08 | PROVIDERS: ATTEND Nurse Practitioner Family | DX: L82.0 Inflamed seborrheic keratosis (principal) ==

== ENCOUNTER 2023-03-26 10:45 | Day surgery (SDC) | payer OTHER ==
[~2023-03-26] VITALS: Ht 154.9 cm; Wt 95.3 kg
[2023-03-26] MEDS: NS 1,000 ML IV ONE (06:00)
[~2023-03-26 10:45] MED LIST changes: +FERR325T3 PO; +MV-M1TAB13 PO
[2023-03-26] MEDS ORDERED: fentaNYL 100 MCG/2 ML INJECTION As Ordered ONE (12:36)
[2023-03-26] MEDS ORDERED: propofoL 200 MG/20 ML VIAL As Ordered ONE (12:51)
[2023-03-26] MEDS ORDERED: ePHEDrine SULFATE 25 MG/5 ML(5MG/ML) SYRINGE As Ordered ONE (12:51)
[2023-03-26 14:15] VITALS: BP 150/67; O2SAT 95
== END 2023-03-26 14:15 | disposition home or self-care (01) ==
LOC: M OPP 10:45
PROVIDERS: ATTEND Internal Medicine Gastroenterology
DX: K64.4 Residual hemorrhoidal skin tags (principal); K64.8 Other hemorrhoids; K57.30 Diverticulosis of large intestine without perforation or abscess without bleeding; D50.9 Iron deficiency anemia, unspecified; K29.70 Gastritis, unspecified, without bleeding; K31.89 Other diseases of stomach and duodenum; Z79.899 Other long term (current) drug therapy; Z91.018 Allergy to other foods; Z88.1 Allergy status to other antibiotic agents
CPT/HCPCS: 43239; 45378; 88305; J3010

== ENCOUNTER → 2023-12-16 | Outpatient (CLI) | payer OTHER ==
[~2023-12-16] MED LIST changes: +FLUO-365 PO; -FLUO20CA22 PO
== END ==
LOC: M WHC 14:20
PROVIDERS: ATTEND Physician Assistant Medical
DX: Z12.31 Encounter for screening mammogram for malignant neoplasm of breast (principal); R92.323 Mammographic fibroglandular density, bilateral breasts

== ENCOUNTER → 2024-01-28 | Outpatient (CLI) | payer OTHER | LOC: M SLEEP 20:00 | PROVIDERS: ATTEND Physician Assistant Medical | DX: G47.33 Obstructive sleep apnea (adult) (pediatric) (principal); R06.83 Snoring; E66.9 Obesity, unspecified; R40.0 Somnolence ==

== ENCOUNTER → 2024-12-23 | Outpatient (CLI) | payer OTHER | LOC: M WHC 12:20 | PROVIDERS: ATTEND Nurse Practitioner Family | DX: Z12.31 Encounter for screening mammogram for malignant neoplasm of breast (principal) ==